=== PATIENT | male | born 1995 | race Two or more races ===

== ENCOUNTER 2019-12-21 16:07 | Emergency (ER) | payer OTHER ==
[~2019-12-21] VITALS: Ht 180.3 cm; Wt 86.2 kg
== END 2019-12-21 22:18 | disposition home or self-care (01) ==
LOC: ER 16:07
DX: J06.9 Acute upper respiratory infection, unspecified (principal); B96.0 Mycoplasma pneumoniae [M. pneumoniae] as the cause of diseases classified elsewhere